=== PATIENT | male | born 1990 | race Two or more races ===

== ENCOUNTER 2025-02-20 23:17 | Emergency (ER) | payer MEDICAID, SELFPAY ==
[2025-02-20 23:19] VITALS: BMI 29.6
[2025-02-20 23:38] VITALS: BP 118/81; PULSE 99; RESP 19; TEMP 36.9; O2SAT 95
--- NOTE | 2025-02-20 23:59 | PD.EDSKIN ---
ED Skin Abcess FB-RME/HPI General Chief complaint: Skin/Abscess/Foreign Body Stated complaint: ABSCESS R GROIN Time Seen by Provider: 02/20/25 23:57 Arrival date/time: 02/20/25 23:17 RME / HPI RME / HPI narrative: This section includes all my notes and documentations, including HPI, PE, and ED course. Chencho Finch MD HPI: 35 y/o male presents with worsening redness and pain over the lump within the lower abdomen x 1 week. Denies fever. Was seen by a doctor outside the ER earlier today. Was prescribed doxycycline. No other complaints. ROS: All negative except as documented in HPI. Physical Exam: General: Alert and oriented. Eyes: Conjunctivae and lids clear. ENT: No nasal congestion. Neck: Supple. Lungs: No respiratory distress. Abdomen: Soft and nontender. Normal bowel sounds. No distension. No rebound or guarding. Skin: Warm and dry. In the lower abdominal area, there is a plum sized fluctuant mass with erythema/edema/calor/tenderness. Neuro: Alert and oriented X 3. At this point, diagnoses include: Abscess. Abscess I&D procedure note: The wound was prepped and draped in normal sterile fashion. With 11 blade, 0.5 cm incision made. Profuse amount of pus drained. Pressure dressing applied. Patient tolerated well with no complications and felt much better. Recommended outpatient care. Based on my best medical judgment, made decision no further evaluation or treatment indicated at this time. Patient understands and agrees to the discharge instructions customized and printed, see below. Discharge Instructions from Dr. Finch: ?Your abscess was successfully incised and drained pus. ?Take _Doxycycline_ to help kill the germs causing your infection, prescribed by a doctor outside the ER earlier today. ?Three times per day, soak in warm water with antibacterial soap and Epsom salt. Try to gently squeeze out more pus before the incision closes. ?After drying as much as possible, apply new dressing. ?See your private doctor of your choice on 03/15 for recheck and further care, to make sure you are healing properly without any complications. ?-Seek immediate medical care with fever > 100.4, spreading redness, or with any concerns. Chencho Finch MD Related Data Allergies Allergy/AdvReac Type Severity Reaction Status Date / Time Penicillins Allergy Severe HIVES Verified 02/20/25 23:24 Review of Systems Review of Systems Systems Reviewed: All systems reviewed, normal except as documented ED Exam Narrative Physical exam: Refer to HPI Course Quality Measures none Vital Signs Vital signs: Vital Signs Temperature 98.5 F 02/20/25 23:38 Pulse Rate 99 02/20/25 23:38 Respiratory Rate 19 02/20/25 23:38 Blood Pressure 118/81 02/20/25 23:38 Pulse Oximetry (%) 95 02/20/25 23:38 Oxygen Delivery Method Room Air 02/20/25 23:38 Skin / Abscess / Foreign Body MDM Narrative MDM Narrative:: Scribe Attestation: Aga Mittal, am scribing for and in the presence of Dr. Finch. Provider Notation: Although this document has been carefully reviewed, there may still be some phonetic and other typographical errors.? These errors are purely grammatical due to imperfections in the software program and should not be construed in any way to? compromise the substance of the patient's medical care during this visit. 35 y/o male presents with worsening redness and pain over the lump within the lower abdomen x 1 week. Denies fever. Was seen by a doctor outside the ER earlier today. Was prescribed doxycycline. No other complaints. Patient data External records reviewed:: [facility] previous records (Reviewed prior ED recrds from 12/26/23. Patient was seen for Alcohol withdrawal.) Clinical information provided by:: patient Social determinants that could affect healthcare access:: none Patient has the following chronic illnesses:: None reported How is presenting disease/condition affected by chronic disease/condition?: no chronic disease Evaluation data The following diagnostics were reviewed and interpreted by me:: other (specify) (N/A) Lab and/or radiology exams considered but not ordered:: None Interpretation Summary: N/A Medications / Prescriptions Medications or Prescriptions considered but not ordered:: None Medication administrations:: N/A Consultations Consultation(s) initiated? (list below): No Diagnosis Skin/Abscess Differential Diagnosis: abscess of skin or subcutaneous tissue, insect bites and contact dermatitis Most likely diagnosis given after review of the tests above:: Abscess Admission Indicated Admission indicated?: not indicated Explain why admission is indicated or not indicated:: With significant improvement and no condition needing emergent intervention, there was no indication for admission. Admission Request Was there a request for admission?: No Disposition Plan Disposition Plan: Discharge Discharge Attestation Discharge Attestation: The patient and all family members were given an opportunity to ask questions and understood the discharge instructions. Discharge instructions specifically effects, indications for sooner follow up or return to the emergency department, and the expected course of current diagnosis. Patient condition: Stable Discharge Plan Plan Patient Disposition: HOME (Self Care) Problem List Clinical Impression: Abscess Patient/Caregiver Discharge Instructions Discharge Activity: activity as tolerated Education Materials: ED Abscess, Incision And Drainage Additional Instructions: Discharge Instructions from Dr. Finch: ?Your abscess was successfully incised and drained pus. ?Take _Doxycycline_ to help kill the germs causing your infection, prescribed by a doctor outside the ER earlier today. ?Three times per day, soak in warm water with antibacterial soap and Epsom salt. Try to gently squeeze out more pus before the incision closes. ?After drying as much as possible, apply new dressing. ?See your private doctor of your choice on 03/15 for recheck and further care, to make sure you are healing properly without any complications. ?-Seek immediate medical care with fever > 100.4, spreading redness, or with any concerns. Print Language: Greenlandic Stand Alone Forms: [employer] Award Info., Patient Portal Info Letter
== END 2025-02-21 00:23 | disposition home or self-care (01) ==
LOC: SERX 02-21 00:05
PROVIDERS: Emergency Provider Emergency Medicine; PCP Family Medicine
DX: L02.214 Cutaneous abscess of groin (principal)
CPT/HCPCS: 10060; 99282

== ENCOUNTER 2025-04-28 13:55 | Emergency (ER) | payer MEDICAID, SELFPAY ==
[2025-04-28 13:56] VITALS: BMI 31.9
--- NOTE | 2025-04-28 14:10 | PC.NURSE ---
APPLIED C COLLAR IN TRIAGE.
[2025-04-28 14:15] VITALS: BP 138/90; PULSE 87; RESP 20; TEMP 37.1; O2SAT 96
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
[2025-04-28 16:18] LABS: Basophils # (Auto) 0.1 Thou/mm3 (0.0-0.2); Basophils % (Auto) 1 % (0-2.5); Eosinophils # (Auto) 0.1 Thou/mm3 (0.0-0.5); Eosinophils % (Auto) 1 % (0-10); Hematocrit 46.8 % (41.0-53.0); Hemoglobin 16.2 g/dL (13.5-16.0); Immature Granulocytes Auto 0.02 Thou/mm3 (0.00-0.00); Lymphocytes # (Auto) 2.4 Thou/mm3 (1.0-4.8); Lymphocytes % (Auto) 31 % (10-50); Mean Corpuscular HGB Conc 34.6 g/dl (31.0-37.0); Mean Corpuscular Hemoglobin 31.3 pg (25.0-35.0); Mean Corpuscular Volume 91 fL (80-100); Monocytes # (Auto) 0.9 Thou/mm3 (0.0-0.8); Monocytes % (Auto) 12 % (0-12); Neutrophils # (Auto) 4.2 Thou/mm3 (1.8-7.7); Neutrophils % (Auto) 54 % (37-80); Nucleated Red Blood Cell # 0.00 Thou/mm3 (0.00-0.00); Nucleated Red Blood Cell % 0 /100 WBC (0); Platelet Count 192 Thou/mm3 (140-440); RDW Standard Deviation 46.1 fL (35.1-43.9); Red Blood Count 5.17 Miln/mm3 (4.50-5.90); White Blood Count 7.7 Thou/mm3 (3.8-10.6)
[2025-04-28 16:30] VITALS: BP 136/76; PULSE 83; RESP 18; O2SAT 96
[2025-04-28] MEDS: ONDANSETRON INJ 2 MG/ML INJ 2 ML 4 MG IVP (16:32)
[2025-04-28] MEDS: MORPHINE SULF INJ 4 MG/ML VIAL IVP (16:34)
[2025-04-28 16:49] LABS: Alanine Aminotransferase 73 U/L (10-49); Albumin, Serum 4.5 gm/dL (3.5-5.0); Albumin/Globulin Ratio 1.3 (1.2-2.2); Alcohol, Blood Medical 291.3 mg/dL (0-10.0); Alkaline Phosphatase 110 U/L (46-116); Anion Gap 14 (7-16); Aspartate Amino Transferase 100 U/L (0-34); BUN/Creatinine Ratio 6 Ratio (12-20); Bilirubin,Total 0.5 mg/dL (0.3-1.2); Blood Urea Nitrogen < 5 mg/dL (9-23); Calcium 9.4 mg/dL (8.3-10.6); Calcium (Corrected) 9.4 mg/dL (8.5-10.1); Carbon Dioxide 21.2 mMol/L (20.0-31.0); Chloride 109 mMol/L (98-107); Creatinine (Component) 0.9 mg/dL (0.6-1.3); Estimated Creatinine Clearance 128.2 mL/min (>60); Globulin 3.6 gm/dL (2.3-3.5); Glucose 114 mg/dL (74-106); Osmolality,Calculated 285 (275-295); Potassium 3.6 mMol/L (3.4-5.1); Sodium 144 mMol/L (136-145); Total Protein 8.1 gm/dL (5.7-8.2); eGFR > 60 See Note
--- NOTE | 2025-04-28 16:54 | PC.NURSE ---
CALLED [facility] TO REPORT INCIDENT. [facility] WILL SEND OFFICER FOR REPORT.
[2025-04-28 18:17] VITALS: BP 145/76; PULSE 97; RESP 18; O2SAT 97
--- NOTE | 2025-04-28 18:55 | PC.NURSE ---
[facility] OFFICER AT BEDSIDE SPEAKING TO PT AT THIS TIME.
[2025-04-28 19:13] LABS: Collection Type, Urine Clean Catch; Squamous Epithelial Cell,Urine 0 /hpf (0-5); WBC,Urine 0 /hpf (0-5)
[2025-04-28 19:38] LABS: Amphetamine/Methamp Scrn,U Negative (Negative); Barbiturate Screen,Urine Negative (Negative); Benzodiazepines Screen,Urine Negative (Negative); Benzoylecgonine Screen, Ur Negative (Negative); Fentanyl Screen,Urine Negative (Negative); Opiate Screen,Urine Positive (Negative); THC Screen,Urine Positive (Negative)
[2025-04-28 19:41] LABS: Bacteria,Urine Rare; Bilirubin,Urine Negative (Negative); Blood,Urine 1+ (Negative); Clarity,Urine Clear (Clear/Hazy); Color,Urine Lt-Yellow (Lt Yel-Yel); Culture Indicated,Urine Not Indicated; Glucose, Urine Negative (Negative); Hyaline Casts,Urine < 1 /hpf (0-1); Ketones,Urine Negative (Negative); Leukocyte Esterase,Urine Negative (Negative); Nitrite,Urine Negative (Negative); PH,Urine 6.5 (5.0-7.0); Protein,Urine Negative (Neg - Trace); RBC,Urine 7 /hpf (0-3); Specific Gravity,Urine 1.007 (1.001-1.035); Urobilinogen,Urine Negative mg/dL (0.0-1.0)
== END 2025-04-28 19:15 | disposition home or self-care (01) ==
PROVIDERS: Emergency Provider Emergency Medicine
DX: S00.511A Abrasion of lip, initial encounter (principal); F10.929 Alcohol use, unspecified with intoxication, unspecified; S39.92XA Unspecified injury of lower back, initial encounter; S29.9XXA Unspecified injury of thorax, initial encounter; S39.91XA Unspecified injury of abdomen, initial encounter; S19.9XXA Unspecified injury of neck, initial encounter; M48.07 Spinal stenosis, lumbosacral region; N20.0 Calculus of kidney; V23.41XA Electric (assisted) bicycle driver injured in collision with car, pick-up truck or van in traffic accident, initial encounter; Y90.8 Blood alcohol level of 240 mg/100 ml or more; Y93.55 Activity, bike riding
CPT/HCPCS: 36415; 70450; 70486; 71250; 72125; 72131; 74176; 80053; 80307; 80320; 81001; 85025; 96374; 96375; 99284; J2270; J2405; G0480

== ENCOUNTER → 2025-05-01 | Outpatient (CLI) | payer MEDICAID, SELFPAY ==
--- NOTE | 2025-05-01 13:30 | XR_ITS ---
Examination: MRI lumbar spine without contrast Date and time of exam: May 01, 2025, 1405 hours, compared to May 02, 2023 INDICATIONS: Low back pain radiating down both legs weakness in both legs 1 year Technique: Multiple MRI axial and sagittal sections lumbar spine. Sagittal T2-weighted images, TR 3500, TE 118 T1 weighted transverse sections, TR 688 T8.5, T2-weighted sagittal sections T1 weighted sagittal sections TR 621, TE 30 T2 axial sections, TR 4, 190, TE 84. Findings: Grade 1 spondylolisthesis L5 on S1 Moderate disc narrowing at this level Adequate marrow signal lumbar vertebral bodies Significant disc narrowing T11-T12 L5-S1 grade 1 spondylolisthesis with 10 mm bilateral foraminal disc bulges produces severe bilateral L5 ganglionic compression More cephalad levels are unremarkable IMPRESSION: L5-S1 grade 1 spondylolisthesis with large bilateral foraminal disc bulges produces severe bilateral L5 ganglionic compression
== END | disposition home or self-care (01) ==
LOC: SMRI 13:01
PROVIDERS: PCP Physician Assistant; Referring Provider Physician Assistant; Visit Provider Physician Assistant
DX: M51.370 Other intervertebral disc degeneration, lumbosacral region with discogenic back pain only (principal); G95.20 Unspecified cord compression
CPT/HCPCS: 72148